=== PATIENT | female | born 1950 | race African-American/Black ===

== ENCOUNTER 2017-01-18 20:36 | Emergency (ER) | payer BC ==
[2015-06-24 14:07] VITALS: BMI 30.6
[~2017-01-18 20:36] MED LIST: BYSTOLIC20 MG PO; HUMULIN R100 U/ML SC; LEVAQUIN500 MG PO; MIRALAX17 GM PO; NORVASC10 MG PO; PEPCID20 MG PO; SYNTHROID100 MCG PO
[2017-01-18 22:29] LABS: BASOPHILS 0.1 % (0-2); EOSINOPHILS 1.4 % (0-7); HEMATOCRIT 40.1 % (36.0-48.0); HEMOGLOBIN 13.4 g/dL (12-16); IMMATURE GRANULOCYTES 0.1 % (0-5); LYMPHOCYTES 26.4 % (15-50); MCH 30.8 pg (26.0-34.0); MCHC 33.4 g/dL (31.0-37.0); MCV 92.2 fL (80.0-100.0); MEAN PLATELET VOLUME 11.1 fL (7.4-10.4); MONOCYTES 7.6 % (2-11); NEUTROPHILS 64.4 % (40-80); PLATELET COUNT 199 10x3/uL (130-400); RBC 4.35 10x6/uL (4.00-5.40); RDW 13.5 % (11.5-14.5); WBC 7.1 10x3/uL (4.8-10.8)
[2017-01-18 22:55] LABS: ALBUMIN 4.1 g/dL (3.4-5.0); ANION GAP 13.5 mmol/L (8-16); BILIRUBIN - TOTAL 0.37 mg/dL (0.2-1.3); CALCIUM 9.2 mg/dL (8.5-10.1); CARBON DIOXIDE 28.2 mmol/L (21.0-32.0); CREATININE - SERUM 1.2 mg/dL (0.6-1.3); POTASSIUM - SERUM 3.7 mmol/L (3.5-5.1); PROTEIN - SERUM 7.4 g/dL (6.4-8.2)
[2017-01-18 23:23] LABS: APPEARANCE CLEAR (CLEAR); BILIRUBIN NEGATIVE (NEGATIVE); COLOR YELLOW (YELLOW); GLUCOSE 1000 mg/dL (NEGATIVE); KETONE NEGATIVE (NEGATIVE); NITRITE NEGATIVE (NEGATIVE); PROTEIN NEGATIVE (NEGATIVE); SPECIFIC GRAVITY 1.025 (1.005-1.020); UROBILINOGEN NORMAL (NORMAL)
[2017-01-18 23:24] LABS: BACTERIA FEW /hpf (NONE SEEN); EPITHELIAL CELLS 0-5 /hpf (0-5); LEUKOCYTE ESTERASE TRACE (NEGATIVE); RED CELLS - URINE 0-5 /hpf (0-5); WHITE CELLS - URINE 0-5 /hpf (0-5)
== END 2017-01-18 23:37 | disposition home or self-care (01) ==
LOC: D.ER 20:36
PROVIDERS: Emergency Medicine
DX: R10.12 Left upper quadrant pain (principal); I10 Essential (primary) hypertension; E11.9 Type 2 diabetes mellitus without complications

== ENCOUNTER → 2017-03-03 13:53 | Outpatient (CLI) | payer BC ==
[2015-06-24 14:07] VITALS: BMI 30.6
== END | disposition home or self-care (01) ==
LOC: D.MAMMO 11:15
DX: Z12.31 Encounter for screening mammogram for malignant neoplasm of breast (principal)

== ENCOUNTER 2017-04-22 09:04 | Emergency (ER) | payer BC, MEDICARE ==
[2015-06-24 14:07] VITALS: BMI 30.6
== END 2017-04-22 10:25 | disposition home or self-care (01) ==
LOC: D.ER 09:04
DX: S61.412A Laceration without foreign body of left hand, initial encounter (principal); W26.0XXA Contact with knife, initial encounter; Y93.89 Activity, other specified; Y92.029 Unspecified place in mobile home as the place of occurrence of the external cause; I10 Essential (primary) hypertension; E11.9 Type 2 diabetes mellitus without complications

== ENCOUNTER → 2017-05-21 10:51 | Outpatient (CLI) | payer BC, MEDICARE ==
[2015-06-24 14:07] VITALS: BMI 30.6
== END | disposition home or self-care (01) ==
LOC: D.US 10:30
DX: R10.12 Left upper quadrant pain (principal)

== ENCOUNTER → 2017-12-31 09:07 | Outpatient (CLI) | payer OTHER ==
[2015-06-24 14:07] VITALS: BMI 30.6
== END | disposition home or self-care (01) ==
LOC: D.US 09:00
DX: R10.9 Unspecified abdominal pain (principal)

== ENCOUNTER → 2018-10-18 12:35 | Outpatient (CLI) | payer OTHER ==
[2015-06-24 14:07] VITALS: BMI 30.6
== END | disposition home or self-care (01) ==
LOC: D.CT 12:35
PROVIDERS: ATTEND Family Medicine
DX: R10.12 Left upper quadrant pain (principal); E78.2 Mixed hyperlipidemia

== ENCOUNTER → 2019-10-05 07:57 | Outpatient (CLI) | payer MEDICARE ==
[2015-06-24 14:07] VITALS: BMI 30.6
[2019-10-05 08:40] LABS: ALBUMIN 4.2 g/dL (3.4-5.0); BILIRUBIN - DIRECT 0.13 mg/dL (0.00-0.30); BILIRUBIN - INDIRECT 0.51 mg/dL (0.00-1.00); BILIRUBIN - TOTAL 0.64 mg/dL (0.2-1.3)
== END | disposition home or self-care (01) ==
LOC: D.LAB 07:57 → D.US 09:30
PROVIDERS: ATTEND Internal Medicine Gastroenterology
DX: K76.0 Fatty (change of) liver, not elsewhere classified (principal)

== ENCOUNTER 2019-11-23 20:23 | Emergency (ER) | payer MEDICARE ==
[~2019-11-23] VITALS: Ht 152.4 cm; Wt 81.6 kg
[2019-11-23 20:29] VITALS: Ht 152.4 cm; Wt 81.6 kg
[2019-11-23] MEDS ORDERED: LANTUS SOLOSTAR3 ML SC (20:30)
[2019-11-23 21:01] LABS: BASOPHILS 0.1 % (0-2); EOSINOPHILS 1.2 % (0-7); HEMATOCRIT 41.8 % (36.0-48.0); HEMOGLOBIN 13.8 g/dL (12-16); IMMATURE GRANULOCYTES 0.1 % (0-5); LYMPHOCYTES 23.8 % (15-50); MCV 90.9 fL (80.0-100.0); MEAN PLATELET VOLUME 11.3 fL (7.4-10.4); MONOCYTES 6.3 % (2-11); NEUTROPHILS 68.5 % (40-80); PLATELET COUNT 203 10x3/uL (130-400); RDW 14.1 % (11.5-14.5); WBC 8.4 10x3/uL (4.8-10.8)
[2019-11-23 21:02] LABS: BILIRUBIN NEGATIVE (NEGATIVE); GLUCOSE 50 mg/dL (NEGATIVE); KETONE NEGATIVE (NEGATIVE); NITRITE NEGATIVE (NEGATIVE); SPECIFIC GRAVITY 1.015 (1.005-1.020); UROBILINOGEN NORMAL (NORMAL)
[2019-11-23 21:11] LABS: ANION GAP 11.8 mmol/L (8-16); CALCIUM 9.3 mg/dL (8.5-10.1); CARBON DIOXIDE 28.6 mmol/L (21.0-32.0); CREATININE - SERUM 1.3 mg/dL (0.6-1.3); POTASSIUM - SERUM 3.4 mmol/L (3.5-5.1)
[2019-11-23 21:17] LABS: ALBUMIN 4.3 g/dL (3.4-5.0); BILIRUBIN - TOTAL 0.5 mg/dL (0.2-1.3); PROTEIN - SERUM 7.9 g/dL (6.4-8.2)
[2019-11-23] MEDS ORDERED: DICLOFENAC SODI50 MG PO (22:24)
[2019-11-23] MEDS ORDERED: CYCLOBENZAPRINE10 MG PO (22:43)
[2019-11-23 22:48] VITALS: BP 146/78
== END 2019-11-23 22:35 | disposition home or self-care (01) ==
LOC: D.ER 20:23
PROVIDERS: Family Medicine
DX: M54.32 Sciatica, left side (principal); E11.9 Type 2 diabetes mellitus without complications; I10 Essential (primary) hypertension; E07.9 Disorder of thyroid, unspecified; Z79.4 Long term (current) use of insulin

== ENCOUNTER → 2020-10-02 09:40 | Outpatient (CLI) | payer OTHER ==
[2019-11-23 20:29] VITALS: BMI 30.6
[~2020-10-02 09:40] MED LIST changes: +CYCLOBENZAPRINE10 MG PO; +DICLOFENAC SODI50 MG PO; +LANTUS SOLOSTAR3 ML SC
[2020-10-02 10:29] LABS: ALBUMIN 4.2 g/dL (3.4-5.0); BILIRUBIN - DIRECT 0.13 mg/dL (0.00-0.30); BILIRUBIN - INDIRECT 0.61 mg/dL (0.00-1.00); BILIRUBIN - TOTAL 0.74 mg/dL (0.2-1.3); PROTEIN - SERUM 7.9 g/dL (6.4-8.2)
== END | disposition home or self-care (01) ==
LOC: D.LAB 08:00 → D.US 10:30
PROVIDERS: ATTEND Internal Medicine Gastroenterology
DX: K76.0 Fatty (change of) liver, not elsewhere classified (principal)